=== PATIENT | male | born 1955 | race Caucasian/White ===

== ENCOUNTER 2019-09-03 00:41 | Observation (INO) ==
[2019-09-03] MEDS ORDERED: ASPIRIN PO ONE (01:05)
[2019-09-03 01:29] LABS: BASO# 0.07 X1000 (0.0-0.2); BASO% 0.7 % (0.0-0.8); EOS# 0.25 X1000 (0.0-0.7); EOS% 2.4 % (0.0-10.0); HEMATOCRIT 52.8 % (42.0-52.0); IMM GRAN# 0.07 X1000 (0.0-0.04); IMM GRAN% 0.7 % (0.0-0.5); LYMPH# 2.82 X1000 (1.2-3.4); LYMPH% 27.2 % (20.5-51.1); MCH 31.5 PG (27-31); MCHC 34.1 g/dL (33-37); MCV 92.5 FL (81-99); MONO# 0.94 X1000 (0.11-0.59); MONO% 9.1 % (1.7-9.3); MPV 11.8 FL (7.4-10.4); NEUT# 6.23 X1000 (1.4-6.5); NEUT% 59.9 % (42.2-75.2); PLT 199 X1000 (130-400); RBC 5.71 XMIL (4.7-6.1); RDW 12.9 % (11.5-14.5); WBC 10.38 X1000 (4.8-10.8)
--- NOTE | 2019-09-03 01:36 | EKG Report ---
Test Performed on : 09/03/2019 00:49:06 AM Test Reason : CP Blood Pressure : / mmHG Vent. Rate : 059 BPM Atrial Rate : 059 BPM P-R Int : 178 ms QRS Dur : 092 ms QT Int : 414 ms P-R-T Axes : 057 033 068 degrees QTc Int : 409 ms Sinus bradycardia. Possible Left atrial enlargement Borderline ECG No previous ECGs available Unconfirmed Result
[2019-09-03 01:47] LABS: INR 0.96; PROTIME 12.9 Seconds (11.0-16.0)
[2019-09-03 01:48] LABS: PTT 25.1 Seconds (22.3-41.8)
[2019-09-03 01:52] LABS: ALB/GLOB RATIO 2.2; ALBUMIN 4.7 g/dL (3.5-5.0); CALCIUM 10.7 mg/dL (8.8-10.2); CREATININE 1.3 mg/dL (0.7-1.2); POTASSIUM 4.4 mmol/L (3.5-5.1); TOTAL BILIRUBIN 0.45 mg/dL (0.20-1.00); TOTAL PROTEIN 6.8 g/dL (6.3-8.3)
[2019-09-03] MEDS ORDERED: NITROGLYCERIN SL ONE (03:14)
[2019-09-03] MEDS ORDERED: MORPHINE IV ONE (04:38)
--- NOTE | 2019-09-03 05:29 | PROVIDER DOCUMENTATION ---
HPI-General Adult - General Chief Complaint: Chest Pain Stated Complaint: CHEST PAIN (HEART HX) Time Seen by Provider: 09/03/19 02:47 Source: patient Allergies/Adverse Reactions: Patient Allergies Allergy/AdvReac Type Severity Reaction Status Date / Time No Known Allergies Allergy Verified 09/03/19 03:24 Home Medications: Home Medication List Medication Instructions Recorded Confirmed Last Taken Type Aspirin [Aspir-Low] 81 mg PO DAILY 09/03/19 09/03/19 Unknown History Fenofibrate Nanocrystallized 145 mg PO DAILY 09/03/19 09/03/19 Unknown History [Fenofibrate] Metoprolol Succinate 50 mg PO DAILY 09/03/19 09/03/19 Unknown History Pravastatin Sodium 40 mg PO DAILY 09/03/19 09/03/19 Unknown History Sitagliptin Phos/Metformin HCl 1 tab PO DAILY 09/03/19 09/03/19 Unknown History [Janumet Xr 100-1,000 mg Tablet] Valsartan/Hydrochlorothiazide 1 tab PO DAILY 09/03/19 09/03/19 Unknown History [Valsartan-Hctz 320-12.5 mg Tab] - History of Present Illness -Gen Adult Nature of Presenting Problems: Pt presents with cp, started 1 day ago, substernal, sharp, radiation to upper back between shoulder blades pt denies f/c, fox, sob, cough, ap, n/v/d. Pt is lying in bed in no acute distress. Location of Pain/Injury: reports: chest Pain Radiation: reports: back Quality of Pain: reports: sharp Severity: reports: moderate Onset/Duration: reports: 24 hours ago Timing: reports: still present Context/Activities at Onset: reports: none Modifying Factors: improves with: nothing Associated Symptoms: reports: denies symptoms Similar Symptoms Previously?: Yes Recently seen or treated by another doctor?: No Review of Systems - Adult - REVIEW OF SYSTEMS - ADULT Constitutional: reports: no symptoms reported Eyes: reports: no symptoms reported Ears, Nose, Mouth & Throat: reports: no symptoms reported Cardiovascular: reports: see HPI Respiratory: reports: no symptoms reported Gastrointestinal: reports: no symptoms reported Genitourinary: reports: no symptoms reported Musculoskeletal: reports: no symptoms reported Integumentary: reports: no symptoms reported Neurological: reports: no symptoms reported Psychiatric: reports: no symptoms reported Endocrine: reports: no symptoms reported Hematologic/Lymphatic: reports: no symptoms reported Allergic/Immunologic: reports: no symptoms reported All Other Systems: Reviewed and Negative Past History - Adult - PAST MEDICAL HISTORY-ADULT Review of Records: reports: Old Records Reviewed, Nursing Assessment Review, Medications Reviewed, Social history reviewed & non-contributory. Major Childhood Illnesses: reports: denies history Cardiovascular: reports: CAD Respiratory: reports: denies history Gastrointestinal: reports: denies history Obstetrical/Gynecological: reports: denies history Genitourinary: reports: denies history Musculoskeletal: reports: denies history Neurological: reports: denies history Psychiatric: reports: denies history Endocrine/Immune: reports: denies history Other Conditions: reports: denies history Physical Exam-General - PHYSICAL EXAM-ADULT Initial Vital Signs Reviewed: Yes - CONSTITUTIONAL General Appearance: appears well - EYES Eyes: PERRL/EOMI - HEAD, EARS, NOSE, MOUTH & THROAT HENMT: normocephalic/atraumatic - NECK Neck: normal inspection - RESPIRATORY Respiratory: lungs clear, no respiratory distress, no accessory muscle use - CARDIOVASCULAR Cardiovascular: regular rate, rhythm - GASTROINTESTINAL (ABDOMEN) Abdominal Exam: normal bowel sounds, non tender, soft - LYMPHATIC Lymphatic: no adenopathy - MUSCULOSKELETAL Back Exam: normal inspection Extremity: normal range of motion - SKIN Integumentary: normal color - NEUROLOGIC Neurologic: grossly normal - PSYCHIATRIC Psych/Mental Status: normal mood/affect Progress - PLAN OF CARE/RESULTS Progress/Plan/Lab Results: Vital Signs - 8 hr 09/03/19 01:00 09/03/19 03:30 09/03/19 03:45 Temperature 98.4 F Pulse Rate 60 58 L 59 L Respiratory Rate 17 14 12 Blood Pressure 165/95 O2 Sat by Pulse Oximetry 95 97 96 Laboratory Results - last 24 hr 09/03/19 09/03/19 09/03/19 00:58 00:58 00:58 WBC 10.38 RBC 5.71 Hgb 18.0 Hct 52.8 H MCV 92.5 MCH 31.5 H MCHC 34.1 RDW Std Deviation 12.9 Plt Count 199 MPV 11.8 H Immature Gran % (Auto) 0.7 H Neut % (Auto) 59.9 Lymph % (Auto) 27.2 King % (Auto) 9.1 Eos % (Auto) 2.4 Baso % (Auto) 0.7 Immature Gran # (Auto) 0.07 H Neut # (Auto) 6.23 Lymph # (Auto) 2.82 King # (Auto) 0.94 H Eos # (Auto) 0.25 Baso # (Auto) 0.07 PT INR PTT (Actin FS) Sodium 138 Potassium 4.4 Chloride 100 Carbon Dioxide 21 L Anion Gap 17 BUN 22 Creatinine 1.3 H Estimated GFR/1.73 m2 55 BUN/Creatinine Ratio 17 Glucose 282 H Calculated Osmolality 289 Calcium 10.7 H Total Bilirubin 0.45 AST 26 ALT 22 Alkaline Phosphatase 47 Creatine Kinase 82 Troponin T Zxy-P-Purwdvnnksb Pept 87 Total Protein 6.8 Albumin 4.7 Globulin 2.1 Albumin/Globulin Ratio 2.2 09/03/19 09/03/19 00:58 00:58 WBC RBC Hgb Hct MCV MCH MCHC RDW Std Deviation Plt Count MPV Immature Gran % (Auto) Neut % (Auto) Lymph % (Auto) King % (Auto) Eos % (Auto) Baso % (Auto) Immature Gran # (Auto) Neut # (Auto) Lymph # (Auto) King # (Auto) Eos # (Auto) Baso # (Auto) PT 12.9 INR 0.96 PTT (Actin FS) 25.1 Sodium Potassium Chloride Carbon Dioxide Anion Gap BUN Creatinine Estimated GFR/1.73 m2 BUN/Creatinine Ratio Glucose Calculated Osmolality Calcium Total Bilirubin AST ALT Alkaline Phosphatase Creatine Kinase Troponin T < 0.010 Qdg-R-Mrydqkkjqnw Pept Total Protein Albumin Globulin Albumin/Globulin Ratio Orders Category Date Time Status Cardiac Monitoring DIRECTED Care 09/03/19 01:05 Active Oxygen Therapy- ED Nursing DIRECTED Care 09/03/19 01:05 Active Saline Loc NOW Care 09/03/19 01:05 Active CHEST-2 VIEWS [RAD] Stat Exams 09/03/19 01:05 Taken CBC WITH ELECTRONIC DIFF [HEME] Stat Lab 09/03/19 00:58 Completed CK PROFILE [SP CHEM] Stat Lab 09/03/19 00:58 Completed COMPREHENSIVE METABOLIC PANEL [CHEM] Stat Lab 09/03/19 00:58 Completed PRO B-NATRIURETIC PEPTIDE Stat Lab 09/03/19 00:58 Completed PROTIME WITH INR [COAG] Stat Lab 09/03/19 00:58 Completed PTT [COAG] Stat Lab 09/03/19 00:58 Completed TROPONIN T Stat Lab 09/03/19 00:58 Completed Aspirin Med 09/03/19 01:05 Discontinued 325 mg PO NOW ONE Morphine Med 09/03/19 04:38 Discontinued 4 mg IV NOW ONE Nitroglycerin Sl [Nitroglycerin] Med 09/03/19 03:14 Discontinued 0.4 mg SL NOW ONE CP/SOB/Palp >45 yrs of Age Stat Oth 09/03/19 01:05 Ordered EKG [EKG] Stat Ther 09/03/19 01:05 Draft Result Diagrams: 09/03/19 00:58 09/03/19 00:58 Departure - Departure Date of Disposition Decision: 09/03/19 Time of Disposition Decision: 05:28 DIAGNOSIS: Chest pain Qualifiers: Chest pain type: other chest pain Qualified Code(s): R07.89 - Other chest pain; R07.8 - Other chest pain Disposition: ADMITTED INPATIENT 09 Certified Medical Emergency: Emergent Condition: Stable Referrals and Follow-Ups: Kailash Landeros MD [Primary Care Provider] - - Critical Care Note This patient required my direct & personal management of CC.: No Attestation - Physician/ DAYO Attestation Patient care was provided by Advanced Practice Provider:: No The physician spent face to face time with patient:: Yes Advanced Practice Provider documentation review:: Supervising physician onsite and consulted in the evaluation and care of this patient. The physician did have a face to face encounter with the patient.
[2019-09-03 05:52] LABS: HEMOGLOBIN A1C 7.5 % (4.8-6.0)
[2019-09-03] MEDS ORDERED: ZOFRAN IV PRN (06:05)
[2019-09-03] MEDS ORDERED: TYLENOL PO PRN (06:05)
[2019-09-03] MEDS ORDERED: NITROGLYCERIN TOP ONE (06:05)
[2019-09-03] MEDS ORDERED: MORPHINE IV PRN (06:05)
[2019-09-03] MEDS ORDERED: LOVENOX SUBQ SCH (06:05)
[2019-09-03] MEDS: LOVENOX SUBQ SCH (06:15)
[2019-09-03] MEDS ORDERED: NICODERM PATCH TD ONE (06:16)
[2019-09-03 06:20] LABS: CHOLESTEROL 154 mg/dL (0-200); HDL 34 mg/dL (35-55); LDL 63 mg/dL; TRIGLYCERIDES 287 mg/dL (39-160); VLDL 57 mg/dL
[2019-09-03] MEDS: PRILOSEC PO SCH (06:31)
[2019-09-03] MEDS: HUMALOG SUBQ SCH ×4 (06:42→20:57)
--- NOTE | 2019-09-03 07:30 | Diag Imaging Result Doc PS360 ---
EXAM: CHEST-2 VIEWS 09/03/2019 HISTORY: CP TECHNIQUE: PA and lateral chest COMMENT: There are no previous studies. There is minimal platelike atelectasis over the left base. The heart size and pulmonary vascularity are within normal limits. IMPRESSION: Minimal atelectasis left lower lobe. Electronically signed by Dwayne Mcrae 09/03/2019 7:28 AM
[2019-09-03] MEDS ORDERED: LIPITOR PO SCH (09:00)
[2019-09-03] MEDS ORDERED: LANTUS INSULIN SUBQ SCH (09:00)
[2019-09-03] MEDS ORDERED: ASPIRIN PO SCH (09:00)
[2019-09-03] MEDS ORDERED: ASPIRIN EC PO SCH (09:00)
[2019-09-03] MEDS: DIOVAN PO SCH (09:04)
[2019-09-03] MEDS: HYDROCHLOROTHIAZIDE PO SCH (09:05)
[2019-09-03] MEDS: TOPROL XL PO SCH (09:05)
--- NOTE | 2019-09-03 11:54 | ECHO REPORT ---
ORDER DATE: 09/03/2019 INTERPRETING PHYSICIAN: Dr. Boris Phillips ECHOCARDIOGRAPHIC MEASUREMENTS: 1. Interventricular septum: 1.4 cm. 2. Posterior wall: 1.0 cm. 3. Diastolic diameter: 4.4 cm. 4. Left atrium: 3.2 cm. 5. Aortic root: 3.9 cm. SUMMARY OF THE 2-DIMENSIONAL IMAGIN. Aortic valve leaflets are trileaflet. 2. Pulmonic valve was normal. 3. Tricuspid valve was normal. 4. Mitral valve was normal. 5. There is mild tricuspid regurgitation. Peak velocity across the tricuspid valve less than 2 m/sec. 6. There is mild mitral regurgitation. 7. There is grade 1 diastolic dysfunction. Normal left ventricular cavity size. Mild left ventricular hypertrophy. Estimated ejection fraction of 60%. 8. By Doppler studies, there is no aortic stenosis or regurgitation. 9. There is no pericardial effusion or obvious intracardiac mass or thrombus seen. 10. There is left atrial enlargement. 11. There is no pericardial effusion. cc: MD Kailash Lindsay MD
--- NOTE | 2019-09-03 14:06 | EKG Report ---
Test Performed on : 09/03/2019 06:19:31 AM Test Reason : Chest Pain Blood Pressure : / mmHG Vent. Rate : 055 BPM Atrial Rate : 055 BPM P-R Int : 180 ms QRS Dur : 092 ms QT Int : 446 ms P-R-T Axes : 056 032 080 degrees QTc Int : 426 ms Sinus bradycardia. Possible Left atrial enlargement Nonspecific ST and T wave abnormality Abnormal ECG When compared with ECG of 03-SEP-2019 00:49, (Unconfirmed) No significant change was found Confirmed by Kat GRIFFIN, Sea ([id number]) on 09/05/2019 8:15:21 AM
[2019-09-03] MEDS: JANUVIA PO SCH (15:25)
--- NOTE | 2019-09-03 18:53 | PROGRESS NOTE ---
DATE: 09/03/2019 The patient was admitted early this morning after having chest pain for over a day. His pain originated in the back and spread along to the chest. He has had a history of back problems for a long time but usually his pain resolves within an hour or two. This was different. He has a long history of coronary disease, including 3 stents placed at [facility] many years ago and then [address] Batres approximately 10 years ago. The patient is a diabetic. He is 1 [id number] smoker. He drinks 1 to 2 alcohol beverages every night. I consider him to be a high risk patient. I reviewed the admission orders by the overnight admission team and I have made a few changes which I would prefer. I agree with cardiology consultation and we will continue to get cardiac enzymes. cc: Kailash Landeros MD MTDD
[2019-09-03] MEDS: TRICOR PO SCH (20:57)
[2019-09-03] MEDS: PRAVACHOL PO SCH (20:57)
--- NOTE | 2019-09-03 21:07 | HISTORY AND PHYSICAL ---
PRIMARY CARE PROVIDER: Dr. Kailash Landeros. DATE AND TIME: 09/03/2019 at 0630. CHIEF COMPLAINT: Chest pain. HISTORY OF PRESENT ILLNESS: Mr. Sterling is a 63-year-old male with a past medical history of coronary artery disease, status post a total of 5 coronary artery stents which were placed on 2 separate occasions. He also has a history of hypertension, hyperlipidemia, and diabetes mellitus and is a 0-ffbh-ldz-day everyday smoker. 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 Other than this, he states he has not recently had any cardiac workup or procedures. The patient's initial 3 stents were placed at [facility] in [place], [place]. His last 2 stents were placed at [facility]. The patient states that he did begin having pain on night, 09/01/2019. He states that he was sitting in a chair in the living room watching TV when he began to have sharp pain in his back between his shoulder blades that woke him up from sleep. He stated the pain radiated through and around his back into his chest. He reports the pain in his chest is a pressure- type pain. He did have radiation of this into his left jaw. He did report some diaphoresis as well. The patient states that since that time, the pain has been constant. The patient denies any recent episodes similar to this chest pain. He reports that nothing has really made it better or worse at home, except he did report that morphine given in the ER does help relieve his chest pain. At present, he actually did just receive a dose of morphine and is not reporting any chest pain. He denies any headache, dizziness, shortness of breath or cough. He denies any abdominal pain, nausea, vomiting, or diarrhea. He denies any dysuria or urinary frequency. He denies any pain, numbness, tingling or swelling in the extremities. Upon evaluation in the ER, EKG showed a sinus bradycardia at a rate of 55 with possible left atrial enlargement and nonspecific ST and T-wave abnormalities. The patient did not have any ST elevation or depression. He does appear to have inverted T-waves in V1. Chest x-ray showed minimal atelectasis in the left lower lobe. The patient did have a slightly elevated creatinine of 1.3, though his creatinine was the same in 2013. He did have hyperglycemia with a serum glucose of 282. He also had a negative CK and troponin. All other chemistries were pretty unremarkable. In the ER, he received sublingual nitroglycerin and did ultimately have nitroglycerin paste placed. He has received IV morphine and since that time has reported his pain is improved. He will be placed on inpatient admission to the PVC unit for close monitoring. REVIEW OF SYSTEMS: A 14-point review of systems was conducted with the patient, and all were negative except for pertinent positives mentioned above in the HPI. PAST MEDICAL HISTORY: 1. Coronary artery disease status post coronary artery stent placement. 2. Hypertension. 3. Hyperlipidemia. 4. Diabetes mellitus. 5. Nicotine dependence. PAST SURGICAL HISTORY: 1. Coronary stent placement x5. 2. Low back surgery. SOCIAL HISTORY: The patient is a current everyday smoker. He smokes 1 pack per day and has done so since he was 16 years old. He reports that he drinks 1 to 2 mixed drinks daily, though he denies any previous history of having any alcohol withdrawal symptoms. There is no known history of illicit drug use. The patient has a family member at bedside. FAMILY HISTORY: Positive for his mother having a history of diabetes mellitus. His father had a history of diabetes mellitus as well, and also had a history of heart disease. ALLERGIES: Patient has no known allergies. HOME MEDICATIONS: 1. Aspirin 81 mg p.o. daily. 2. Fenofibrate 145 mg p.o. daily. 3. Metoprolol succinate 50 mg p.o. daily. 4. Pravastatin 40 mg p.o. daily. 5. Janumet extended release 100-1000 mg tablet 1 tablet p.o. daily. 6. Valsartan-hydrochlorothiazide 320-12.5 mg tablet 1 tablet p.o. daily. DIAGNOSTIC DATA: White blood cell count is 10,380, hemoglobin 13, hematocrit 52.8, platelet count 199. PT 12.9, INR 0.96, PTT is 25.1. Sodium is 138, potassium 4.4, chloride 100, serum bicarb 21, BUN 22, creatinine 1.3 with a GFR of 55, glucose 282. Hemoglobin A1c is 7.5, calcium 10.7, magnesium 1.9. Liver function tests within normal limits. CK 82, troponin less than 0.01. EKG showed sinus bradycardia with possible left atrial enlargement and nonspecific ST and T-wave abnormality. Rate of 55 with a QTc of 426. Did note that the patient did appear to have inverted T-waves in V1, though unfortunately we do not have any previous electrocardiogram for comparison at this time. Chest x-ray, 2 views did show minimal atelectasis in the left lower lobe. PHYSICAL EXAMINATION: VITAL SIGNS: Temperature 98.2 degrees, heart rate 59, respirations 19. Blood pressure is 165/90, oxygen saturation is 97% on room air. GENERAL: Mr. Sterling is a pleasant 63-year-old male. He was resting in the ER stretcher. He was in no acute distress. He was alert and oriented x3. HEENT: Head is atraumatic, normocephalic. Pupils are equal, round, reactive to light. They are 3 mm bilaterally and brisk. Oral mucosa is moist. Oropharynx is clear. NECK: Supple. Trachea midline. No JVD noted upon examination. CARDIOVASCULAR: Patient has S1-S2 present. There are no overt murmurs, gallops or rubs appreciated. PULMONARY: The patient has symmetrical chest expansion bilaterally. Lung sounds are clear to auscultation in bilateral full pederson, except that he did have some very slight crackles noted in the right lung base. ABDOMEN: Soft, nontender, nondistended. Bowel sounds present in all 4 quadrants, normoactive. EXTREMITIES: No cyanosis or edema noted. Pulses, motor, and sensory intact in all extremities. Radial and pedal pulses are 2+ bilaterally. INTEGUMENTARY: The patient's skin is pink, warm, and dry. NEUROLOGICAL: Patient is alert and oriented to person, place, time, and situation. He is able to move all extremities. There are no focal neurological deficits noted. ASSESSMENT AND PLAN: 1. Chest pain. For further evaluation of this, we will place the patient with a series of cardiac enzymes. Repeat EKG later on this morning. We will place p.r.n. medicines of morphine for pain. We have ordered an echocardiogram as well. Fortunately, at this time the patient's chest pain has improved with morphine. He is not reporting any chest pain at this present time. We will go ahead and order for him to have Lovenox 80 mg subcutaneously every 24 hours. We have placed a consult with Cardiology. Will await their evaluation and further recommendations for management. 2. History of coronary artery disease status post cardiac stent placement x5. We have continued the patient's regularly prescribed cardiac medications. He did receive a 325 mg aspirin in the ER earlier this morning. We will hold his aspirin today given that he just had this, and we will continue this back tomorrow. We have continued all of his other medicines. 3. Hypertension. The patient's blood pressure was slightly elevated at time of my examination, but has since improved, with the last reading at 146/84. 4. Hyperlipidemia. We will continue his atorvastatin. We have ordered a lipid profile. 5. Diabetes mellitus. The patient has been placed on a Humalog insulin sliding scale per low- dose protocol. We will also place him with Lantus 15 units subcutaneously daily. We will do pattern fingerstick blood sugars. 6. Nicotine dependence. We did cosmetic counselor the patient for several minutes on the importance of smoking cessation, given his history of coronary artery disease. We will continue to cosmetic counselor him on this throughout his admission and upon discharge. 7. Deep vein thrombosis prophylaxis is being provided with Lovenox as mentioned above. The patient has been placed on the PVC unit for close monitoring and vital signs every 4 hours. We will do strict intake and output, incentive spirometry. Further orders and recommendations pending hospital course, diagnostic studies, and physician evaluation. Dictated by YEE Dale for Dmitry Rollins MD cc: MD Kaliash Kat MD Independent exam assessment done by me at bedside. Orders done by me. Exam was essentially benign. Pt will be treated as unstable angina with appropriate management. Would recommend high potency statin regardless of LDL due to preexisting disease of CAD. [id number]
[2019-09-04] MEDS: HUMALOG SUBQ SCH ×4 (06:22→21:16)
[2019-09-04] MEDS: PRILOSEC PO SCH (06:22)
[2019-09-04] MEDS: LOVENOX SUBQ SCH (06:22)
[2019-09-04] MEDS: HYDROCHLOROTHIAZIDE PO SCH (08:53)
[2019-09-04] MEDS: TOPROL XL PO SCH (08:53)
[2019-09-04] MEDS: DIOVAN PO SCH (08:53)
[2019-09-04] MEDS: JANUVIA PO SCH (08:53)
[2019-09-04] MEDS ORDERED: ASPIRIN PO SCH (09:00)
[2019-09-04] MEDS ORDERED: NICODERM PATCH TD SCH (09:15)
--- NOTE | 2019-09-04 12:30 | CARDIOLOGY CONSULTATION ---
DATE: 09/04/2019 REASON FOR CONSULTATION: Cardiology was consulted for CAD, chest pain, abnormal cardiac enzymes. HISTORY OF PRESENT ILLNESS: Mr. Sterling is a 63-year-old, gentleman with a history of coronary artery disease, status post stent placements in 1998 and 2001 on 2 separate occasions, history of hypertension, and hyperlipidemia. He comes in with complaints of having had chest pain, mainly started in his interscapular region on 09/01/2019 and radiated to the front of his chest. He had repeated episodes of this chest discomfort. He did have some radiation to the front of his chest as well as radiating to the jaw. With this, he had noticed some diaphoresis as well. He had repeated episodes of chest pain. Came to the emergency room and was admitted. He has had stent placement at [facility] in the past. He had multiple stents placed in [place] in [place], [place] prior to that. Over the last 15 years, he had been doing well from a cardiac standpoint. There is no history of palpitations. There is no dizziness or syncope. Since admission to the hospital, he has been pain-free. His electrocardiogram revealed normal sinus rhythm. There were no ST-T changes to suggest ischemia or infarction. Nonspecific changes were noted. The patient had cardiac enzymes drawn. The first set of cardiac enzymes was negative. The last troponin was abnormal at 0.105. The patient is a diabetic. REVIEW OF SYSTEMS: A 14-point review of system was done. GI System: There is no history of nausea, vomiting, diarrhea. There is no history of hematemesis or melena. Central Nervous System: There is no focal weakness to suggest a CVA or TIA. System: There is no dysuria or hematuria. Respiratory System: There is no history of cough, expectoration, hemoptysis. There is no history of fevers or chills. PAST MEDICAL HISTORY: 1. Coronary artery disease, status post multiple stent placements in [place], [place] and in [facility]. 2. Hypertension. 3. Hyperlipidemia. 4. Diabetes. 5. Nicotine dependence. 6. Has had low back surgery. SOCIAL HISTORY: Patient is a current every day smoker. Smokes about a pack of cigarettes every day and has been smoking since the age of 16. There is no history of alcohol abuse. FAMILY HISTORY: Positive for diabetes. His father had diabetes and also has history of having had coronary artery disease. ALLERGIES: No known allergies. HOME MEDICATIONS: Include aspirin 81 mg a day, fenofibrate 145, metoprolol 50, pravastatin 40, Janumet, and valsartan/hydrochlorothiazide 320/12.5. PHYSICAL EXAMINATION: Vital Signs: Blood pressure was 127/83. Cardiovascular System: Normal jugular venous pressure. There was no thyromegaly. There was no carotid bruit. First and second heart sounds were heard. There was no S3, S4, or gallop. Respiratory System: Normal air entry. There were no crepitations or rhonchi. Abdomen was soft, nontender. There was no guarding or rigidity. Bowel sounds were heard. Central Nervous System: Alert and oriented, was moving all 4 extremities. Examination of extremities revealed no pedal edema. HEENT: Atraumatic, normocephalic. Pupils were equal and reacting to light. LABORATORY EXAMINATION: Sodium 138, potassium 4.4, BUN 22, creatinine 1.3. Hemoglobin A1c 7.5. His HDL cholesterol was 34, LDL cholesterol 63, triglycerides 154. Hematology: WBC 10.38, hemoglobin 18.8, hematocrit 52, platelet count of 199,000. Chest x-ray, minimal atelectasis, otherwise unremarkable. Echocardiogram, preserved left ventricular systolic function. Ejection fraction of 60%. ASSESSMENT AND PLAN: Mr. Clinton Sterling is a 63-year-old, gentleman who is a chronic smoker. Smokes about a pack of cigarettes a day. Been smoking since the age of 16. Has a history of coronary artery disease, multiple stent placements in the past, hypertension, diabetes. He is admitted with having recurrent episodes of chest pain that started at the interscapular area, radiating to the front of his chest and to the jaw. Electrocardiogram was unremarkable. By cardiac enzymes, the patient has non-Q-wave myocardial infarction. RECOMMENDATIONS: 1. I had a detailed discussion with the patient and his . Would recommend left heart catheterization. Patient would like to be transferred to [facility] for left heart catheterization and further treatment. Risks, benefits, and alternatives were explained. Patient will be transferred to [facility] in the morning. 2. As far as medications are concerned, his blood pressures are under control. He is on multiple medications in addition to beta blockers and aspirin and Lovenox. I have not made any changes. 3. He has hypertension and hyperlipidemia. He is on appropriate medications. LDL cholesterol and triglycerides are within normal range. I have not made any changes. Thank you for the consult. We will follow hospital course. cc: MD Kailash Lindsay MD MTDD
--- NOTE | 2019-09-04 14:51 | PROGRESS NOTE ---
DATE: 09/04/2019 SUBJECTIVE: The patient had no further back or chest pain last night or this morning. He is having no difficulty with eating. There have been no abnormalities on telemetry. OBJECTIVE: Vital Signs: 98.0, 63, 20, 127/83, 98% saturated on room air. Physical Examination: The patient is alert, oriented, conversive, and appropriate. Lungs: Clear. Cardiovascular: Regular without murmur. Laboratory: Over the course of last night, multiple troponins were drawn. In the emergency room, his troponin was negative. At 10:03 a.m., his troponin had increased to 0.4. At 17:00 yesterday, his troponin was 0.105. Serum CKs also increased but still fell within the normal range. Blood sugars were all below 200. ASSESSMENT AND PLAN: 1. Overall, the patient's description of his pain was rather atypical for angina. I was surprised to find that his troponin and CK had trended upward into the abnormal range. I discussed this with Dr. Phillips who recommended transfer to [facility] tomorrow for catheterization. Since hospitalization, the patient's metformin had been held. I am going to hold his diuretic medication in the morning and hopefully, we can proceed with transfer at that point. I had a long discussion with the patient and his prior to the cardiology consultation and despite having done well for so many years, I think that they were pleased with the fact that we want to pursue a definitive study. We will keep the patient on telemetry with all medications intact until tomorrow morning and hopefully, [facility] can accept him on transfer and perform cardiac catheterization. 2. Blood pressure, well-controlled. 3. Diabetes, reasonably-controlled. 4. The patient's tobacco use is being handled with a nicotine patch at the present time. cc: Kailash Landeros MD
[2019-09-04] MEDS: PRAVACHOL PO SCH (21:16)
[2019-09-04] MEDS: TRICOR PO SCH (21:16)
[2019-09-05 04:59] LABS: BASO# 0.06 X1000 (0.0-0.2); BASO% 0.6 % (0.0-0.8); EOS# 0.28 X1000 (0.0-0.7); EOS% 2.8 % (0.0-10.0); HEMATOCRIT 51.2 % (42.0-52.0); HEMOGLOBIN 17.6 g/dL (14.0-18.0); IMM GRAN# 0.05 X1000 (0.0-0.04); IMM GRAN% 0.5 % (0.0-0.5); LYMPH# 3.11 X1000 (1.2-3.4); LYMPH% 31.4 % (20.5-51.1); MCH 31.7 PG (27-31); MCHC 34.4 g/dL (33-37); MCV 92.1 FL (81-99); MONO# 0.95 X1000 (0.11-0.59); MONO% 9.6 % (1.7-9.3); MPV 11.6 FL (7.4-10.4); NEUT# 5.44 X1000 (1.4-6.5); NEUT% 55.1 % (42.2-75.2); PLT 175 X1000 (130-400); RBC 5.56 XMIL (4.7-6.1); RDW 12.7 % (11.5-14.5); WBC 9.89 X1000 (4.8-10.8)
[2019-09-05] MEDS: LOVENOX SUBQ SCH (05:21)
[2019-09-05 05:28] LABS: AGAP 12; BUN 20 mg/dL (8-22); CALCIUM 9.1 mg/dL (8.8-10.2); CHLORIDE 96 mmol/L (98-107); COSMO 271; CREATININE 1.2 mg/dL (0.7-1.2); ESTIMATED GFR > 60; GLUCOSE 174 mg/dL (70-104); POTASSIUM 3.7 mmol/L (3.5-5.1); SODIUM 132 mmol/L (136-145); TCO2 24 mmol/L (25-35)
[2019-09-05] MEDS: PRILOSEC PO SCH (06:04)
[2019-09-05] MEDS: HUMALOG SUBQ SCH (06:20)
[2019-09-05 07:37] VITALS: BP 139/73
--- NOTE | 2019-09-19 04:12 | DISCHARGE SUMMARY ---
ADMISSION DATE: 09/03/2019 DISCHARGE DATE: 09/05/2019 DISCHARGE DIAGNOSES: 1. Chest pain. 2. Atherosclerosis of the [place] vessels. 3. Cardiac stent status. 4. Hypertension. 5. Diabetes, poorly controlled. 6. Tobacco use. HOSPITAL COURSE: Mr. Sterling is a 63-year-old white male who presented with chest pain. He had an extensive coronary history and yet was still smoking, and his diabetes was poorly controlled. The patient's pain resolved in the emergency room, but we still got serial enzymes and admitted him overnight. Unfortunately, his enzymes continued to climb, although the relative numbers were low for acute myocardial ischemia. I consulted Dr. Phillips, and given the patient's high risk factors arranged for transfer to [facility] for cardiac catheterization. He was discharged via ambulance and transferred to [facility], where he underwent heart catheterization. My understanding is he had 3 additional stents placed. The patient can follow up after the procedures. cc: Kailash Landeros MD
== END 2019-09-05 08:20 | disposition short-term general hospital (02) ==
LOC: EDIPHOLD 00:41 → ED 00:41 → SUATTDRO 07:36 → 2N 17:58
PROVIDERS: ADMIT Internal Medicine; ATTEND Internal Medicine